=== PATIENT | female | born 1950 | race African-American/Black ===

== ENCOUNTER 2017-05-21 23:48 | Emergency (ER) | payer MEDICARE ==
[~2017-05-21] VITALS: Ht 167.6 cm; Wt 96.5 kg
[2017-05-22] MEDS ORDERED: IBUPROFEN 800MG TABLET PO ONE (03:45)
[2017-05-22 04:11] VITALS: BP 132/65
== END 2017-05-22 04:12 | disposition home or self-care (01) ==
LOC: ER 23:48
DX: J02.0 Streptococcal pharyngitis (principal); I10 Essential (primary) hypertension; Z90.710 Acquired absence of both cervix and uterus
CPT/HCPCS: 99283